=== PATIENT | female | born 1980 | race African-American/Black ===

== ENCOUNTER 2017-02-16 20:20 | Emergency (ER) | payer MEDICAID, OTHER ==
[~2017-02-16] VITALS: Ht 172.7 cm; Wt 90.7 kg
[2017-02-16 20:26] VITALS: BP_SYST 123
[2017-02-16 22:43] VITALS: BP_SYST 135
== END 2017-02-16 22:43 | disposition home or self-care (01) ==
LOC: SED 20:20
DX: L03.116 Cellulitis of left lower limb (principal); L03.115 Cellulitis of right lower limb; R21 Rash and other nonspecific skin eruption
CPT/HCPCS: 99283